=== PATIENT | female | born 1955 | race Caucasian/White ===

== ENCOUNTER → 2018-05-02 | Outpatient (CLI) | payer OTHER ==
[~2018-05-02] MED LIST: CALC500T76 PO; GLUC-135 PO; LEV25 PO; LEVO25TA56 PO; LOR5/325 PO; MULT-977 PO; PRO25 PO; RIZA10 PO
--- NOTE | 2018-05-02 14:42 | RADIOLOGY IMAGING REPORT ---
FACILITY: [facility] [place] PATIENT NAME: RENARD TO : [id number] MR: [id number] V: [id number] EXAM DATE: ORDERING PHYSICIAN: MICHI RAUCSH TECHNOLOGIST: Victoria Mirza PROCEDURE:BILATERAL DIGITAL SCREENING MAMMOGRAM WITH CAD ASSISTED INTERPRETATION & 3D TOMOSYNTHESIS COMPARISON:Prior mammograms 03/22/17, 01/19/16, 11/09/14, 11/06/13, 10/21/12, 10/19/11. INDICATIONS:SCREENING FINDINGS: Moderately dense fibroglandular tissue is seen throughout the breasts. The parenchymal pattern has remained stable allowing for difference in mammographic technique & patient positioning. There is no evidence of malignant appearing mass, malignant appearing calcifications or other secondary sign of malignancy in either breast. DIAGNOSTIC CATEGORY 1--NEGATIVE. RECOMMENDATIONS: ROUTINE MAMMOGRAM AND CLINICAL EVALUATION. IMPRESSION: BIRADS 1: Negative. No significant abnormality is seen. Dictated by: Roxi Puente M.D. on 05/02/2018 at 14:05 Transcribed by: ARLETTE on 05/02/2018 at 14:08 Approved by: Roxi Puente M.D. on 05/02/2018 at 14:41 [facility]
== END ==
LOC: MAMO 06:51
PROVIDERS: ATTEND Nurse Practitioner Psychiatric/Mental Health
DX: Z12.31 Encounter for screening mammogram for malignant neoplasm of breast (principal)
CPT/HCPCS: 77063; 77067